=== PATIENT | male | born 1995 | race Caucasian/White ===

== ENCOUNTER 2022-11-26 07:14 | Day surgery (SDC) | payer BC ==
[2022-11-24 12:15] LABS: BASOPHILS % (AUTO) 0.6 % (0.0-2.0); EOSINOPHILS # (AUTO) 0.1 K/uL (0.0-0.4); EOSINOPHILS % (AUTO) 1.8 % (0.0-4.0); HEMATOCRIT 43.1 % (36-54); HEMOGLOBIN 14.6 g/dL (14.0-18.0); LYMPHOCYTES # (AUTO) 2.4 K/uL (1.0-5.5); MEAN CORPUSCULAR HEMOGLOBIN 29 pg (27-31); MEAN CORPUSCULAR HGB CONC 34 % (32-36); MEAN CORPUSCULAR VOLUME 86 fL (79.0-98.0); MONOCYTES # (AUTO) 0.6 K/uL (0.0-1.0); MONOCYTES % (AUTO) 8.3 % (1.7-9.3); NEUTROPHILS # (AUTO) 3.8 K/uL (1.8-7.7); NEUTROPHILS % (AUTO) 55.3 % (40.0-70.0); PLATELET COUNT (AUTO) 183 K/uL (130-430); RED BLOOD CELL COUNT(AUTO) 5.03 MIL/uL (4.2-6.2); RED CELL DISTRIBUTION WIDTH 13.2 % (9.0-15.0); WHITE BLOOD COUNT (AUTO) 6.9 K/uL (4.8-10.8)
[2022-11-24 12:21] LABS: BILIRUBIN,URINE NEGATIVE (NEGATIVE); BLOOD, URINE NEGATIVE (NEGATIVE); CLARITY/URINE CLEAR (CLEAR); COLOR,URINE YELLOW (YELLOW); GLUCOSE,URINE NEGATIVE (NEGATIVE); KETONES,URINE NEGATIVE (NEGATIVE); LEUKOCYTE ESTERASE ,URINE NEGATIVE (NEGATIVE); NITRITE, URINE NEGATIVE (NEGATIVE); PROTEIN URINE NEGATIVE (NEGATIVE); UROBILINOGEN,URINE 0.2 (0.2-1.0)
[2022-11-24 13:21] LABS: ALBUMIN 4.2 g/dL (3.4-4.8); CALCIUM 9.3 mg/dL (8.4-11.0); CREATININE 1.27 mg/dL (0.55-1.30); TOTAL BILIRUBIN 0.7 mg/dL (0.0-1.0)
[~2022-11-26] VITALS: Ht 172.7 cm; Wt 96.2 kg
[2022-11-26] MEDS ORDERED: ONDANSETRON HCL 4 MG/2 ML VIAL IVP PRN (13:30)
[2022-11-26] MEDS ORDERED: HYDROmorphone 1 MG/ML INJ. CARTRIDGE IVP PRN (13:30)
[2022-11-26] MEDS ORDERED: KETOROLAC TROMETHAMINE 30 MG VIAL IVP PRN (13:30)
[2022-11-26] MEDS ORDERED: IBUPROFEN 800 MG TABLET PO PRN (13:30)
[2022-11-26] MEDS ORDERED: METOCLOPRAMIDE HCL 10 MG/2 ML VIAL IVP PRN (13:30)
[2022-11-26] MEDS ORDERED: fentaNYL CITRATE/PF 100 MCG/2 ML AMP ONE (14:10)
[2022-11-26] MEDS ORDERED: MIDAZOLAM HCL 5 MG/ML VIAL (VERSED) IV ONE (14:10)
[2022-11-26] MEDS ORDERED: LR 1,000 ML IV.SOLN IV ONE (14:10)
[2022-11-26] MEDS ORDERED: PROPOFOL 200MG/ 20ML VIAL (DIPRIVAN) IV ONE (14:10)
[2022-11-26] MEDS ORDERED: CEFAZOLIN 2 GM IVPB PREMIX 50 ML IV ONE (14:10)
[2022-11-26] MEDS ORDERED: NS IRRIG SOLN 5000 ML IR ONE (14:10)
[2022-11-26] MEDS ORDERED: ONDANSETRON HCL 4 MG/2 ML VIAL ONE (14:10)
[2022-11-26] MEDS ORDERED: SEVOFLURANE 15 MIN GAS INH ONE (14:10)
[2022-11-26] MEDS ORDERED: BUPIVACAINE /PF 0.5% 30 ML VIAL ONE (14:10)
[2022-11-26] MEDS ORDERED: ACETAMINOPHEN 325 MG TABLET PO PRN (15:00)
[2022-11-26] MEDS ORDERED: ACETAMINOPHEN/CODEINE 300 MG-30 MG TABLET PO PRN (15:00)
[2022-11-26] MEDS ORDERED: NALOXONE HCL 0.4 MG/ML AMP (NARCAN) IVP PRN (15:00)
[2022-11-26 16:33] VITALS: BP_SYST 118
== END 2022-11-26 15:35 | disposition home or self-care (01) ==
LOC: SDS 07:14 → SMU 07:17 → SDS 15:35
PROVIDERS: ATTEND Orthopaedic Surgery
DX: S66.2 Injury of extensor muscle, fascia and tendon of thumb at wrist and hand level (principal); T84.84XA Pain due to internal orthopedic prosthetic devices, implants and grafts, initial encounter; F41.9 Anxiety disorder, unspecified; F31.9 Bipolar disorder, unspecified; F03.90 Unspecified dementia, unspecified severity, without behavioral disturbance, psychotic disturbance, mood disturbance, and anxiety; X58.XXXD Exposure to other specified factors, subsequent encounter; Z20.822 Contact with and (suspected) exposure to COVID-19
CPT/HCPCS: 80053; 85025; 87081; 36415 ×2; 81003; 26418; 20680; 73100; 88300; 87426; J3490; J0690; J2250; J2405; J2704; J3010; J7120